=== PATIENT | male | born 1945 | race Caucasian/White ===

== ENCOUNTER 2024-10-18 16:49 | Emergency (ER) | payer OTHER ==
[~2024-10-18] VITALS: Ht 160 cm; Wt 69.4 kg
== END 2024-10-18 17:10 | disposition home or self-care (01) ==
LOC: ED 16:49
DX: T16.1XXA Foreign body in right ear, initial encounter (principal); W44.8XXA Other foreign body entering into or through a natural orifice, initial encounter; Y93.89 Activity, other specified; Y92.009 Unspecified place in unspecified non-institutional (private) residence as the place of occurrence of the external cause; Y99.8 Other external cause status

== ENCOUNTER 2025-03-28 08:49 | Emergency (ER) | payer OTHER ==
[~2025-03-28] VITALS: Ht 160 cm; Wt 71.2 kg
[2025-03-28] MEDS ORDERED: Acetaminophen/Oxycodone 5 MG/325 MG TABLET PO ONE (09:50)
[2025-03-28] MEDS ORDERED: Amoxicillin/Clavulanate Pota 875 MG TAB PO ONE (09:55)
[2025-03-28] MEDS ORDERED: AMOX-CLAV 875-1 EACH PO (10:23)
== END 2025-03-28 10:47 | disposition home or self-care (01) ==
LOC: ED 08:49
DX: H66.91 Otitis media, unspecified, right ear (principal); R68.84 Jaw pain; M25.511 Pain in right shoulder